=== PATIENT | male | born 1940 | race Caucasian/White ===

== ENCOUNTER 2016-12-13 20:14 | Inpatient (IN) | payer MEDICARE ==
[~2016-12-13] VITALS: Ht 180.3 cm; Wt 99.8 kg
[2016-12-13] MEDS ORDERED: HYDROCODON-ACE1 EAC7 PO (21:48)
[2016-12-13] MEDS ORDERED: ZYPREXA5 MG PO (21:49)
[2016-12-13] MEDS ORDERED: CELEXA20 MG PO (21:50)
[2016-12-13] MEDS ORDERED: PLAVIX75 MG PO (21:50)
[2016-12-13] MEDS ORDERED: PROTONIX40 MG PO (21:51)
[2016-12-13] MEDS ORDERED: LIPITOR80 MG PO (21:52)
[2016-12-13] MEDS ORDERED: GLUCOPHAGE500 MG PO (21:52)
[2016-12-13] MEDS ORDERED: ZIAC 5-6.25 MG1 TAB PO (21:53)
[2016-12-13] MEDS ORDERED: KENALOG 0.1 % 115 GM TOPICAL (21:54)
[2016-12-13] MEDS ORDERED: WELLBUTRIN XL150 M1 PO (21:54)
[2016-12-13] MEDS ORDERED: TAMOXIFEN CITRA20 MG PO (21:55)
--- NOTE | 2016-12-13 23:10 | NUR ---
Recieved patient via EMS at 2100, accompanied by family, consents signed, code status full code per family, patient alert and oriented X 3, no acute distress noted, patient has left side weakness from stroke 3 months ago, assist x 2 for transfer, vegitarian diet, current on pneumonia and flu shots.
[2016-12-14 00:28] VITALS: BP 109/52; BMI 30.7
[2016-12-14 06:08] LABS: BASOPHILS 0.4 % (0-2); EOSINOPHILS 4.8 % (0-7); HEMATOCRIT 34.9 % (42.0-54.0); HEMOGLOBIN 11.3 g/dL (13.5-17.5); IMMATURE GRANULOCYTES 0.2 % (0-5); LYMPHOCYTES 34.7 % (15-50); MCH 32.1 pg (26.0-34.0); MCHC 32.4 g/dL (31.0-37.0); MCV 99.1 fL (80.0-100.0); MEAN PLATELET VOLUME 10.6 fL (7.4-10.4); MONOCYTES 9.5 % (2-11); NEUTROPHILS 50.4 % (40-80); PLATELET COUNT 102 10x3/uL (130-400); RBC 3.52 10x6/uL (4.20-6.10); RDW 13.6 % (11.5-14.5); WBC 4.6 10x3/uL (4.8-10.8)
[2016-12-14 06:20] LABS: HEMOGLOBIN A1C 5.8 % (4.8-6.0)
[2016-12-14 06:50] LABS: ALBUMIN 3.1 g/dL (3.4-5.0); ANION GAP 13.5 mmol/L (8-16); BILIRUBIN - TOTAL 0.71 mg/dL (0.2-1.3); CALCIUM 8.8 mg/dL (8.5-10.1); CARBON DIOXIDE 26.7 mmol/L (21.0-32.0); CHOL - HDL RATIO 4.2 ratio (2.3-4.9); CREATININE - SERUM 1.3 mg/dL (0.6-1.3); LDL-HDL RATIO 2.4 ratio (1.5-3.5); POTASSIUM - SERUM 4.2 mmol/L (3.5-5.1); PROTEIN - SERUM 6.4 g/dL (6.4-8.2); THYROID STIMULATING HORMONE 3.72 uIU/mL (0.36-3.74)
[2016-12-14 08:00] VITALS: BP 105/49
--- NOTE | 2016-12-14 10:30 | NUR ---
B) PATIENT IS DELUSIONAL. HE SAYS HE FELL OUT OF THE BED AND PED ON THE FLOOR. PATIENT DID NOT FALL OUT OF THE BED BECUASE HE IS A BIG MAN AND NEEDS MAX ASSIST TO GET UP OUT OF BED. HE IS BELIGERANT AND WANTS TO ARGUE. HE YELLED WHEN STAFF ROLLED HIM IN HIS BED AND TRIED TO CHANGE HIM AND GET HIM UP. HE IS IRRTABLE AND DOES NOT COMPREHEND WHY HE IS HERE. I) PROVIDE PRESCRIBED MEDS, REDIRECT NEEDED. R) PATIENT IS COMPLIANT WITH MEDS. P) CONTINUE PLAN OF CARE.
[2016-12-14 10:42] VITALS: Ht 180.3 cm; Wt 99.8 kg
[2016-12-14 19:30] VITALS: BP 121/78
--- NOTE | 2016-12-14 22:21 | PSY ---
PATIENT NAME:ANGE PAN MEDICAL RECORD: [id number] : 38 LOCATION:[facility] ADMISSION DATE: 12/13/16 ACCOUNT: [id number] PSYCHIATRIC EVALUATION DATE OF EVALUATION: 12/14/16 IDENTIFYING DATA: A 76-year-old white male who was admitted because of worsening, agitation, confusion and psychosis. HISTORY OF PRESENT ILLNESS: This patient suffered a cerebrovascular accident about 3 months ago. He has residual left hemiparesis. He has been cared for at home by his primarily. However, his mental status has severely deteriorated over the last several months. He is now prone to outbursts of extreme agitation and yelling. He has exhibited prominent delusional ideation primarily of a paranoid nature. He has experienced visual hallucinations as well. This is usually in the forms of people hindering his presence. The patient had been followed by his outpatient physician, Dr. Quinn, and had been treated with increasing amounts of both mood stabilizing and antipsychotic medications. At the time of admission, the patient had been taking Zyprexa 5 mg twice a day in addition to Celexa and Wellbutrin. Despite these measures, the patient has continued to deteriorate. The patient was assessed in the Emergency Department and subsequently transferred here. Since admission, the patient has continued to show significant emotional lability. He is anxious, restless. He slept very poorly last night and reported visual hallucinations to staff. Because of acute psychosis and worsening of overall cognitive status, the patient is now admitted. PAST MEDICAL HISTORY: Significant of course for recent CVA. The patient also has a history of hypertension, type 2 diabetes, gastroesophageal reflux disease and hyperlipidemia. FAMILY HISTORY: Essentially noncontributory. SOCIAL HISTORY: The patient has 2 children. 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 He is . He denies substance abuse issues. ALLERGIES: None listed. MENTAL STATUS: On interview, the patient is seated in a wheelchair. He is anxious, but fairly pleasant on interview nonetheless. Affect is very shallow. Speech is repetitive and, at times, tangential. Content of thought is positive for both paranoid delusional ideation and visual hallucinations as described above. On sensorium testing, the patient is oriented to person and the fact that he is hospitalized. He is not oriented correctly as to time nor the reason for being in the hospital. Intermediate and short-term recall as well as concentration show very significant deficits. 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 AXIS II: No diagnosis. AXIS III: History of recent cerebrovascular accident, hypertension, type 2 diabetes, gastroesophageal reflux disease and hyperlipidemia. AXIS IV: Moderate. AXIS V: 36. PLAN: 1. The patient is admitted for further medication adjustment as well as medical workup. 2. Daily supportive therapy. 3. We will coordinate with family regarding aftercare at the time of discharge. TRANSINT:[id number] Voice Confirmation ID: [id number] DOCUMENT ID: [id number] DIANE OTTO III, MD at 2221 CC: [id number] DICTATION DATE: 12/14/[address] REFEREE: 12/14/16 1323 ADM IN [place] [id number] [place] [id number]
[2016-12-15 06:14] LABS: RAPID PLASMA REAGIN Non Reactive (Non Reactive)
[2016-12-15 07:22] LABS: FOLATE (FOLIC ACID) - SERUM 12.9 ng/mL (>3.0)
[2016-12-15 09:59] VITALS: BP 137/78
--- NOTE | 2016-12-15 13:00 | NUR ---
ALERT AND ORIENTED TO NAME AND PLACE. CARRIES ON APPROPRIATE CONVERSATION AT TIMES, THEN OTHER TIMES PATIENT IS DEMANDING AND YELLING OUT TO NURSE. SAFETY MAINTAINED. CONTINUE PLAN OF CARE.
[2016-12-15 19:30] VITALS: BP 105/51
[2016-12-16 00:09] LABS: APPEARANCE CLEAR (CLEAR); BILIRUBIN NEGATIVE (NEGATIVE); COLOR YELLOW (YELLOW); GLUCOSE NEGATIVE (NEGATIVE); KETONE NEGATIVE (NEGATIVE); LEUKOCYTE ESTERASE NEGATIVE (NEGATIVE); NITRITE NEGATIVE (NEGATIVE); PROTEIN NEGATIVE (NEGATIVE); SPECIFIC GRAVITY 1.015 (1.005-1.020); UROBILINOGEN NORMAL (NORMAL)
--- NOTE | 2016-12-16 03:00 | NUR ---
CALM AND COOPERATIVE TONIGHT. SEE ASSESSMENT FLOW SHEET FOR DETAILS. HAD LESS HALLUCINATIONS. TONIGHT. WILL CONTINUE PLAN OF CARE.
--- NOTE | 2016-12-16 06:48 | PN ---
PATIENT:ANGE PAN MEDICAL RECORD: [id number] LOCATION:[facility] ADMISSION DATE: 12/13/16 PROGRESS NOTE DATE OF SERVICE: 12/15/2016 SUBJECTIVE: No new complaint is noted. OBJECTIVE: Staff noted that the patient continues to show evidence of psychosis. He exhibited visual hallucinations throughout the night last night. During the daytime, he shows peculiar affect. From time to time, he exhibits repetitive speech. At times, he sings the names of staff members. He requires a great deal of redirection from staff. On exam, mood is elevated. Affect is expansive. Speech is rambling and tangential. Content of thought is positive for recent visual hallucinations. Sensorium shows no change. ASSESSMENT: No change in diagnosis. PLAN: 1. Continue close monitoring and medication adjustment as appropriate. 2. Continue supportive therapy. TRANSINT:[id number] Voice Confirmation ID: [id number] DOCUMENT ID: [id number] DIANE OTTO III, MD at 0648 CC: [id number] DICTATION DATE: 12/15/16 1501 ROBOT PROGRAMMER: 12/15/16 2114 ADM IN [facility] [address] [place] [address]
[2016-12-16 07:00] VITALS: BP 122/64
--- NOTE | 2016-12-16 17:07 | NUR ---
Patient in room, lying in bed. Patient assisted with hygiene, unable to transfer due to left sided weakness. He was oriented to self, and place. He said the year was 1957. Patient was reoriented. Pleasant, calm and compliant with medication. He claims a 2/10 on the pain scale but cries out when left arm is moved. Patient can move his fingers but unable to lift arm. He denies visual hallucinations at this time. Continue to monitor, continue plan of care
[2016-12-16 19:30] VITALS: BP 115/62
--- NOTE | 2016-12-16 21:19 | NUR ---
RECEIVED IN DAYROOM. LAYING IN RECLINING CHAIR WITH EYES OPEN. VERY CONFUSED. NO SIGNS OF HALLUCINATIONS. CALM AND COOPERATIVE WITH CARE AND ASSESSMENTS. REDIRECT AND REORIENT NEEDED. ENCOURAGE TO EXPRESS NEEDS. REMAINS IN RECLINER. SOCIALIZING AT TIMES. CONTINUE PLAN OF CARE
[2016-12-17 07:00] VITALS: BP 133/71
[2016-12-17 08:09] LABS: VITAMIN D 25 HYDROXY 18.4 ng/mL (30.0-100.0)
--- NOTE | 2016-12-17 09:09 | PN ---
PATIENT:ANGE PAN MEDICAL RECORD: [id number] LOCATION:[facility] ADMISSION DATE: 12/13/16 PROGRESS NOTE DATE OF SERVICE: 12/16/2016 SUBJECTIVE: No new complaint. OBJECTIVE: The patient continues to show disjointed speech. Affect remains brittle. Staff reports continued episodic hallucinations. On exam, mood is somewhat irritable. Affect is shallow and brittle. Speech is tangential. Content of thought as noted above. Sensorium unchanged. ASSESSMENT: No change in diagnosis. PLAN: 1. Maintain current medication. 2. Continue supportive therapy. TRANSINT:[id number] Voice Confirmation ID: [id number] DOCUMENT ID: [id number] DIANE OTTO III, MD at 0909 CC: [id number] DICTATION DATE: 12/16/162015 HOT WOUND SPRING PRODUCTION SUPERVISOR: 12/16/162036 ADM IN [facility] [address] [place] [id number]
--- NOTE | 2016-12-17 13:38 | NUR ---
B) Received this am alert and oriented to name and some what to place. Pleasant and cooperative with assessment. I.) Administer medications and monitor compliance. Monitor for any hallucinations and increased confusion. Encourage group participation. Monitor safety. R.) Compliant with medication, no evidence of reorientation to place or situation, patient thinks he is getting rehab and " my is up front to pick me up." Preoccupied with thoughts that is is here, confused about situation. Active in group activities. Safety maintained. P.) Continue plan of care.
--- NOTE | 2016-12-17 19:33 | NUR ---
RECEIVED IN HALLWAY. SITTING IN RECLINER OUTSIDE OF NURSES STATION. NO SIGNS HALLUCIANATIONS. CONFUSED. ENCOURAGE TO EXPRESS NEEDS. REDIRECT AND REORIENT NEEDED. CONTINUES TO SIT IN RECLINER. CONTINUE PLAN OF CARE
[2016-12-17 20:02] VITALS: BP 135/67
[2016-12-18 07:00] VITALS: BP 148/54
--- NOTE | 2016-12-18 09:45 | NUR ---
Received this oriented to name, reorients to place and time briefly. Cooperative with am assessment. I.) REDIRECT AND REORIENT NEED. MONITOR FOR ANY HALLUCINATIONS OR INCREASED CONFUSION. R.) Compliant with medications, social during breakfast and consumed 90 percent of meal. Cooperative with testing per Dr. Menjivar. No hallucinations noted. Safety maintained. P.) Continue plan of care.
--- NOTE | 2016-12-18 11:01 | PN ---
PATIENT:ANGE PAN MEDICAL RECORD: [id number] LOCATION:[facility] ADMISSION DATE: 12/13/16 PROGRESS NOTE DATE OF SERVICE: 12/17/2016 SUBJECTIVE: No new complaint. OBJECTIVE: The patient continues to be extremely confused. He is disoriented as to time. He realizes he is in a hospital, but he is not sure which one. He has difficulty following the instructions from time to time. Yesterday, he seemed to have a considerable difficulty swallowing although today, he did eat breakfast fairly well. On exam, mood is for the most part euthymic. Affect is shallow. Speech is normal rate and volume, but flow of thought is very tangential. Content of thought seems to focus primarily on somatic concerns. Today, sensorium is not changed. ASSESSMENT: No change in diagnosis. PLAN: 1. Maintain current treatment plan. 2. Continue supportive therapy. TRANSINT:[id number] Voice Confirmation ID: [id number] DOCUMENT ID: [id number] DIANE OTTO III, MD at 1101 CC: [id number] DICTATION DATE: 12/17/16 1029 NEUROLOGY DIRECTOR: 12/17/16 1542 ADM IN [facility] [address] [place] [address]
--- NOTE | 2016-12-18 13:55 | NUR ---
Patient sitting quietly in sharita chair, tech reports that patient bite his tongue, no bledding noted per nurse, patient responds slowly to instruction, moans and is snoring. Vital signs obtained bp 142/56, hr. 64. resp 18 and temp 98.1 ax. Responds to verbal instructions, and withdrew his hand resisting viatl signs and pulse ox check but then released when instructed. pulse 0x 96%. Continue to monitor.
--- NOTE | 2016-12-18 14:30 | NUR ---
continued to monitor patient and noted gurling and difficulty coughing up secretions. Difficult to responds only moans. Transported patient to his room and vital signs obtained. oxygen saturation fluctuating from 84- 95% when every he takes a deep breath, upper lung sykes congested, bp 155/69, hr 60, resp 14-22. Patient placed on oxygen with sats between 88-95%, suction also set up. [employer] informs nurse that during lunch patient took one bite of his cheese sandwich and stopped eating. Contacted informed of patient condition and assessment, orders received. Contacted Respiratory, patient suctioned with mininmal suction return, no gagging noted. ABG obtained at bedside and blood glucose level 36. Patient given sugar under tongue as insta glucouse was obtained and iv sited, attempt times one per this nurse with 22 g unsuccessful, contacted IV nurse Lori 20g angiocath to right arm times one stick, as dextrose obtained patient given instaglucose, FSBS checked during this administration, level up to 41 1 amp of d50 iv given per MYRNA Sandoval patient starting to arouse and eyes open, responding and attempting to talk FSBS as follow 1508= 41, 1514= 306, 1540= 127. Patient stablized, talking with staff and even attempt to joke with gestures and yelling out. CXR was obtained. Patient is alert and oriented to name and place. One on one monitoring in place. oxygen is at 4lpm sating 95-96percent, decreased to 2lpm and remains at sat of 94-96%, intermittent coughing, of clear white sputum. Positioned up in bed, and patient was stablized at 1530.
--- NOTE | 2016-12-18 15:30 | NUR ---
Patient sposue and son here to visit him, updated them on patient hypoglycemic episode and treatment. per spouse " he sometimes get a grayish color at home and has trouble swallowing.", she states she is not sure if his blood sugar is down at those times or not but notes that patient was taken off of his Metformin. Patient able to carry on appropriate conversation with family during visitation with no complications assessed. Spouse verbalized understanding of information regarding this hypoglycemic episode.
--- NOTE | 2016-12-18 17:02 | NUR ---
Patient has good visit with his family, remains in his room and monitored, FSBS now 82, patient refused meal, given orange juice and cassi craker. He did have swallow eval eariler. Lungs are clearer with no gurling assesed.
--- NOTE | 2016-12-18 18:00 | NUR ---
Remains in room, alert and oriented to self, he is now yelling out out his and others name. Vital signs remain stable. sat 95%, refused supper. Cleansed up of incontinence of stool. No distress assessed.
[2016-12-18 19:03] LABS: BASOPHILS 0.1 % (0-2); EOSINOPHILS 0.1 % (0-7); HEMATOCRIT 36.6 % (42.0-54.0); HEMOGLOBIN 12.2 g/dL (13.5-17.5); IMMATURE GRANULOCYTES 0.1 % (0-5); LYMPHOCYTES 13.8 % (15-50); MCH 32.6 pg (26.0-34.0); MCHC 33.3 g/dL (31.0-37.0); MCV 97.9 fL (80.0-100.0); MEAN PLATELET VOLUME 10.7 fL (7.4-10.4); MONOCYTES 7.5 % (2-11); NEUTROPHILS 78.4 % (40-80); RBC 3.74 10x6/uL (4.20-6.10); RDW 13.1 % (11.5-14.5); WBC 8.1 10x3/uL (4.8-10.8)
[2016-12-18 19:04] LABS: PLATELET COUNT 150 10x3/uL (130-400)
[2016-12-18 19:19] LABS: ALBUMIN 3.4 g/dL (3.4-5.0); ANION GAP 10.1 mmol/L (8-16); BILIRUBIN - TOTAL 0.84 mg/dL (0.2-1.3); CALCIUM 8.7 mg/dL (8.5-10.1); CARBON DIOXIDE 30.5 mmol/L (21.0-32.0); CREATININE - SERUM 1.4 mg/dL (0.6-1.3); POTASSIUM - SERUM 3.6 mmol/L (3.5-5.1); PROTEIN - SERUM 7.1 g/dL (6.4-8.2)
[2016-12-18 19:30] VITALS: BP 119/45
--- NOTE | 2016-12-18 19:42 | NUR ---
RECEIVED IN BEDROOM. LAYING WITH EYES CLOSED. CALM AND COOPERATIVE WITH CARE. RESPONDS TO QUESTIONS. CRITICAL LAB CALLED. BLOOD SUGAR OF 38. DR HARINDER SOSA. NEW ORDERS TO DISCONTINUE BID AMARYL 2MG, GIVE FOOD AND MONITOR FSBS. REMAINS CALM AND COOPERATIVE IN BED. NO SIGNS OF DISTRESS. CONTINUE PLAN OF CARE
--- NOTE | 2016-12-18 21:55 | NUR ---
PT IS BEING DISCHARGED TO [facility] 2 ROOM 2[address]OD[address]AR[address] DR. PIZANO TO FOLLOW HIS CARE. SPOUSE VICTOR HUGO PAN NOTIFIED OF DISCHARGE TO [facility] FLOOR AND ROOM NUMBER. PAPERWORK FAXED AND COPIES GIVEN TO [facility] NURSE.
[2016-12-19] MEDS ORDERED: PROTONIX40 MG PO (03:52)
[2016-12-19] MEDS ORDERED: ZIAC 5-6.25 MG1 TAB PO (03:53)
[2016-12-19] MEDS ORDERED: PERPHENAZINE2 MG PO (03:55)
== END 2016-12-18 22:03 | disposition short-term general hospital (02) | DRG 57 ==
LOC: D.PSYCH 20:14
PROVIDERS: Family Medicine; ADMIT Psychiatry & Neurology Psychiatry
DX: I69.919 Unspecified symptoms and signs involving cognitive functions following unspecified cerebrovascular disease (principal); F01.50 Vascular dementia, unspecified severity, without behavioral disturbance, psychotic disturbance, mood disturbance, and anxiety; F32.9 Major depressive disorder, single episode, unspecified; I10 Essential (primary) hypertension; E11.65 Type 2 diabetes mellitus with hyperglycemia; Z79.4 Long term (current) use of insulin; K21.9 Gastro-esophageal reflux disease without esophagitis; E78.5 Hyperlipidemia, unspecified; Z85.3 Personal history of malignant neoplasm of breast

== ENCOUNTER 2016-12-18 22:00 | Inpatient (IN) | payer MEDICARE ==
[~2016-12-18] VITALS: Ht 180.3 cm; Wt 100.7 kg
[~2016-12-18 22:00] MED LIST: CELEXA20 MG PO; GLUCOPHAGE500 MG PO; HYDROCODON-ACE1 EAC7 PO; KENALOG 0.1 % 115 GM TOPICAL; LIPITOR80 MG PO; PLAVIX75 MG PO; PROTONIX40 MG PO; TAMOXIFEN CITRA20 MG PO; WELLBUTRIN XL150 M1 PO; ZIAC 5-6.25 MG1 TAB PO; ZYPREXA5 MG PO
--- NOTE | 2016-12-18 22:15 | NUR ---
RECEIVED PT FROM [facility] VIA BED SKIN W/D COLOR PALE SALINE LOCK INTACT TO RIGHT WRIST NO REDNESS OR EDEMA AT SITE DRSG C/D/I WILL CONTINUE TO MONITOR
[2016-12-18 23:52] VITALS: BP 115/54
[2016-12-19 00:51] VITALS: BP 100/46; BMI 31.0
--- NOTE | 2016-12-19 01:38 | NUR ---
FSBS 48 STAT GLUCOSE ORDERED 1/2 AMP D50 GIVEN SIVP
--- NOTE | 2016-12-19 02:38 | NUR ---
LAB CALLED CRITICAL GLUCOSE 46 1/2 AMP DEXTROSE 50% GIVEN SIVP GLUCAGON 1MG GIVEN IM LT DORSOGLUTEAL WILL RECHECK IN 30 MIN FED PT ANDREIA CRACKERS WITH PEANUT BUTTER
--- NOTE | 2016-12-19 03:29 | NUR ---
FSBS 129 CONFUSION APPEARS TO BE CLEARING UP PT KNOWS HE IS IN [place]
[2016-12-19] MEDS ORDERED: PROTONIX40 MG PO (03:52)
[2016-12-19 03:53] VITALS: BP 121/43
[2016-12-19] MEDS ORDERED: ZIAC 5-6.25 MG1 TAB PO (03:53)
[2016-12-19] MEDS ORDERED: PERPHENAZINE2 MG PO (03:55)
--- NOTE | 2016-12-19 05:04 | NUR ---
FSBS 58 PT REFUSING ORAL INTAKE DEXTROSE 50% GIVEN SIVP TO LT HAND
[2016-12-19 08:41] VITALS: BP 120/54
[2016-12-19 08:56] LABS: BASOPHILS 0.1 % (0-2); EOSINOPHILS 0.4 % (0-7); HEMATOCRIT 32.6 % (42.0-54.0); HEMOGLOBIN 10.9 g/dL (13.5-17.5); IMMATURE GRANULOCYTES 0.2 % (0-5); LYMPHOCYTES 20.8 % (15-50); MCH 32.5 pg (26.0-34.0); MCHC 33.4 g/dL (31.0-37.0); MCV 97.3 fL (80.0-100.0); MEAN PLATELET VOLUME 10.9 fL (7.4-10.4); MONOCYTES 8.6 % (2-11); NEUTROPHILS 69.9 % (40-80); PLATELET COUNT 130 10x3/uL (130-400); RBC 3.35 10x6/uL (4.20-6.10); RDW 13.1 % (11.5-14.5); WBC 9.8 10x3/uL (4.8-10.8)
[2016-12-19 09:09] LABS: BILIRUBIN - TOTAL 0.85 mg/dL (0.2-1.3); CALCIUM 8.1 mg/dL (8.5-10.1); CARBON DIOXIDE 27.2 mmol/L (21.0-32.0); CREATININE - SERUM 1.3 mg/dL (0.6-1.3); PROTEIN - SERUM 6.5 g/dL (6.4-8.2)
[2016-12-19 09:14] LABS: ANION GAP 10.8 mmol/L (8-16)
--- NOTE | 2016-12-19 10:19 | NUR ---
IV PATENT. FAMILY AT BS. CALL LIGHT IN REACH. WILL CONT TO MONITOR BS.
--- NOTE | 2016-12-19 10:37 | DS ---
PATIENT:ANGE PAN :38 MEDICAL RECORD: [id number] DISCHARGE SUMMARY ADMISSION DATE: 12/18/16 DISCHARGE DATE: DATE OF ADMISSION: 12/13/2016. DATE OF DISCHARGE: 12/18/2016. HISTORY OF PRESENT ILLNESS: A 76-year-old white male with past history of CVA, admitted because of worsening agitation, confusion and psychosis. He had been cared for at home by his , but his mental status had severely deteriorated over the last several months. He was exhibiting periods of agitation and yelling. He also exhibited delusional ideation and visual hallucination because of worsening psychosis, the patient was admitted. For further details, please see previously dictated history. ____ COURSE IN THE HOSPITAL: The patient was assessed by primary care. He has a history of CVA plus hypertension, type 2 diabetes, gastroesophageal reflux disease and hyperlipidemia. Following admission, the patient was followed with her medical concerns by Dr. Cochran. From a psychiatric standpoint, he was started on Aricept 10 mg daily as well as Celexa 20 mg daily for depressive symptoms, was also maintained on perphenazine 2 mg t.i.d. Nonpsychiatric medications did include Plavix and Amaryl. The patient showed some improvement in terms of his agitation; however, the date of discharge, the patient showed considerable difficulties in terms of maintaining his blood sugar. Because of deterioration in terms of blood sugars status, it was elected to go ahead and transfer the patient to the medical floor. 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 AXIS II: No diagnosis. AXIS III: Diabetes -- currently uncontrolled, hypertension, recent CVA, hyperlipidemia. AXIS IV: Severe. AXIS V: 30. PLAN: The patient is transferred to the medical floor. TRANSINT:[id number] Voice Confirmation ID: [id number] DOCUMENT ID: [id number] DIANE OTTO III, MD at 1037 CC: [id number] DICTATION DATE: 12/18/162141 REFRIGERATOR GLAZIER: 12/19/161 ADM IN [place] [id number] [place] [address]
--- NOTE | 2016-12-19 10:37 | PN ---
PATIENT:ANGE PAN MEDICAL RECORD: [id number] LOCATION:D[facility].211 ADMISSION DATE: 12/18/16 PROGRESS NOTE DATE OF SERVICE: 12/18/2016 SUBJECTIVE: No new complaint. OBJECTIVE: The patient continues to show considerable confusion. He was tested by Dr. Menjivar. He scored 9/30 on the [facility] Mental Status exam indicating significant dementia of the Alzheimer's type. On exam, mood is for the most part euthymic. Affect is shallow. Speech is tangential. Content of thought is negative for overt psychosis. 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 Sensorium testing is unchanged. ASSESSMENT: No change in diagnosis. PLAN: 1. We will add Aricept 10 mg h.s. 2. Continue other current medications including perphenazine 2 mg 3 times a day. 3. Continue supportive therapy. TRANSINT:[id number] Voice Confirmation ID: [id number] DOCUMENT ID: [id number] DIANE OTTO III, MD at 1037 CC: [id number] DICTATION DATE: 12/18/16 1221 PUDDLER PILE DRIVING: 12/18/16 2215 ADM IN [place] [id number] [place] [id number]
[2016-12-19 12:46] VITALS: BP 130/54
[2016-12-19 13:48] VITALS: Ht 180.3 cm; Wt 100.7 kg
--- NOTE | 2016-12-19 16:49 | NUR ---
SCD'S ON LUPE LE
[2016-12-19 16:53] VITALS: BP 173/75
--- NOTE | 2016-12-19 19:31 | NUR ---
RESUMED CARE OF PT, LYING IN BED WITH EYES CLOSED RESPIRATIONS EVEN AND UNLABORED ON ROOM AIR. LEFT FOREARM INFUSING D10NS @ 100. CALL LIGHT IN REACH. NO NEEDS NOTED AT THIS TIME. WILL CONTINUE TO MONITOR. SEE NURSE ASSESSMENT.
[2016-12-19 20:00] VITALS: BP 132/52
--- NOTE | 2016-12-19 23:18 | NUR ---
FSBS CHECKED 3 TIMES 61, 51, AND 48 RESPECTIVELY. 1/2 AMP OF D50 GIVEN EACH TIME. WILL CONTINUE TO MONITOR.
[2016-12-20] VITALS: BP 148/83
--- NOTE | 2016-12-20 03:41 | NUR ---
ADVERTISING DIRECTOR AT BEDSIDE TO OBTAIN VITALS, CALL LIGHT IN REACH. WILL CONTINUE WITH PLAN OF CARE. FSBS RECHECK AFTER 1 AMP OF D50 GIVEN FOR BS OF 43, IS CURRENTLY 85.
[2016-12-20 04:00] VITALS: BP 164/83
--- NOTE | 2016-12-20 05:32 | NUR ---
FSBS 45, 1/2 AMP D50 IVP.
[2016-12-20 06:04] LABS: BASOPHILS 0.2 % (0-2); EOSINOPHILS 3.3 % (0-7); HEMATOCRIT 33.6 % (42.0-54.0); HEMOGLOBIN 11.4 g/dL (13.5-17.5); IMMATURE GRANULOCYTES 0.2 % (0-5); LYMPHOCYTES 24.3 % (15-50); MCH 32.4 pg (26.0-34.0); MCHC 33.9 g/dL (31.0-37.0); MCV 95.5 fL (80.0-100.0); MEAN PLATELET VOLUME 10.6 fL (7.4-10.4); MONOCYTES 10.9 % (2-11); NEUTROPHILS 61.1 % (40-80); PLATELET COUNT 150 10x3/uL (130-400); RBC 3.52 10x6/uL (4.20-6.10); WBC 8.5 10x3/uL (4.8-10.8)
[2016-12-20 06:17] LABS: CARBON DIOXIDE 27.1 mmol/L (21.0-32.0); CREATININE - SERUM 1.3 mg/dL (0.6-1.3); POTASSIUM - SERUM 3.1 mmol/L (3.5-5.1)
--- NOTE | 2016-12-20 06:59 | NUR ---
AM LAB SHOWED GLUCOSE OF 108, RECHECKED FSBS NOW 44, 1/2 D50 GIVEN IVP.
--- NOTE | 2016-12-20 07:29 | NUR ---
ASSESSMENT COMPLETED.O2 AT 2 L/M PER NC. NO TELEMERTY. IV OD D 10 AT 100 CC HR. OLD CVA WITH WEAKNESS AT LEFT SIDE. SCDS ON. BLOOD SUGAR AT 44, 1/2 AMP D50 GIVEN TO PT.
[2016-12-20 07:55] VITALS: BP 161/87
--- NOTE | 2016-12-20 08:17 | NUR ---
WHOLE AMP OF D50 GIVEN @ 0800. DR PIZANO NOTIFIED BUT NO ANSWER. PATIENT RESPONSED VERBALLY BY " I AM CRAZY TO DAY.". AT BEDSIDE. HAD CONVERSATION WITH ABOUT CODE STATUS. SHE STATED SHE WANTS A FULL CODE. WILL CONTINUE TO MONITOR. WILL TRY TO GET PT TO EAT BREAKFAST.
--- NOTE | 2016-12-20 09:00 | NUR ---
PREPED AND READY FOR SEWING MACHINE OPERATOR SEMIAUTOMATIC
--- NOTE | 2016-12-20 09:58 | NUR ---
DR. PIZANO HERE TO SEE PATIENT. BS CHECKED-103. PATIENT MORE ALERT. THIS NURSE HAD SPOKEN TO ROLDAN RAMOS TELEMARKETING AGENT ABOUT GETTING FOODS THAT PATIENT WOULD EAT. D10 GTT INCREASED TO 125CC/HR. ORDERED BY DR. PIZANO. PATIENT IS ORIENTED TO CERTAIN THINGS, IE TESTIMONY OF GOVERNMENT OFFICIAL ON CERTAIN CHANNEL. BUT DOES NOT KNOW HE IS IN HOSPITAL. AT BEDSIDE AND WILL CONTINUE TO MONITOR.
--- NOTE | 2016-12-20 11:30 | NUR ---
PT ALERT. B/S 119. DENIES ANY NEEDS. CALL LIGHT IN REACH WITH SR UP . WILL MONITOR
[2016-12-20 11:35] VITALS: BP 108/69
[2016-12-20 15:22] VITALS: BP 169/73
--- NOTE | 2016-12-20 17:32 | NUR ---
LYING QUIETLY WITH FAMILY AT BEDSIDE.FSBS 233 AFTER EATING. DENIES ANY NEEDS. CALL LIGHT IN REACH AND SR UP
--- NOTE | 2016-12-20 17:51 | NUR ---
CLEANED AND REPOSITIONED. DENIES ANY NEEDS. CALL LIGHT IN REACH WITH SR UP. FAMILY AT BEDSIDE
--- NOTE | 2016-12-20 19:29 | NUR ---
RESUMED CARE OF PT, LYING IN BED RESPIRATIONS EVEN AND UNLABORED ON 2LPM VIA NC. LEFT AC INFUSING D10 @ 125. SCDS ON, CALL LIGHT IN REACH. BOX ALARM ON. NO NEEDS NOTED AT THIS TIME, SEE NURSE ASSESSMENT.
[2016-12-20 20:00] VITALS: BP 117/63
--- NOTE | 2016-12-21 03:00 | NUR ---
MEDICAL PHYSICS PROFESSOR AT BEDSIDE TO OBTAIN VITALS, CALL LIGHT IN REACH. WILL CONTINUE WITH PLAN OF CARE. BED BATH AND LINENS CHANGED.
[2016-12-21 04:00] VITALS: BP 131/59
[2016-12-21 07:01] LABS: ANION GAP 12.5 mmol/L (8-16); CALCIUM 7.9 mg/dL (8.5-10.1); CARBON DIOXIDE 25.2 mmol/L (21.0-32.0); CREATININE - SERUM 1.5 mg/dL (0.6-1.3); MAGNESIUM - SERUM 1.3 mg/dL (1.8-2.4)
[2016-12-21 07:02] LABS: POTASSIUM - SERUM 3.7 mmol/L (3.5-5.1)
--- NOTE | 2016-12-21 07:10 | NUR ---
ASSESSMENT COMPLETED. NO TELEMERTY. O2 AT 2 LM PER NC. IV TO LEFT AC OF D10 AT 50. REPOSITIONED FOR COMFORT
[2016-12-21 07:48] VITALS: BP 125/62
[2016-12-21 11:48] VITALS: BP 138/72
--- NOTE | 2016-12-21 12:13 | NUR ---
TEMP UP. WILL REPORT TO DOCTOR. SR UP WITH CALL LIGHT IN REACH
--- NOTE | 2016-12-21 12:20 | NUR ---
Nutrition follow-up: Diet: Vegetarian regular PO intake has improved to ~25-50% of meals FSBS running > 200 mg/dl now Wt: 221# +BM RDN ordered daily milkshake and Boost with breakfast, dinner RDN following.
[2016-12-21 13:17] LABS: BASOPHILS 0.1 % (0-2); EOSINOPHILS 2.7 % (0-7); HEMATOCRIT 31.9 % (42.0-54.0); HEMOGLOBIN 10.7 g/dL (13.5-17.5); IMMATURE GRANULOCYTES 0.1 % (0-5); LYMPHOCYTES 13.9 % (15-50); MCH 32.1 pg (26.0-34.0); MCHC 33.5 g/dL (31.0-37.0); MCV 95.8 fL (80.0-100.0); MONOCYTES 11.3 % (2-11); NEUTROPHILS 71.9 % (40-80); PLATELET COUNT 149 10x3/uL (130-400); RBC 3.33 10x6/uL (4.20-6.10); RDW 12.9 % (11.5-14.5); WBC 7.4 10x3/uL (4.8-10.8)
--- NOTE | 2016-12-21 13:36 | NUR ---
PT LYING QUIETLY WITH EYES CLOSED. FAMILY AT BEDSIDE. CALL LIGHT IN REACH WITH SR UP. LAB DRAWING BLOOD
--- NOTE | 2016-12-21 14:53 | NUR ---
LEAHY CATH 16FRENCH PLACED WITHOUT DIFFICULTY. 1200 CC URINE RETURNED TO CATH BAG. URINE SENT TO LAB.PT REPOSITIONED AND BED CHANGED
--- NOTE | 2016-12-21 15:10 | NUR ---
ORDERS RECEIVED FOR HOME HEALTH (DISCHARGE PLANNING). ATTEMPTED TO TALK WITH THE PATIENT. HE OPENED EYES BRIEFLY, BUT DID NOT REMAIN OPEN AND THERE WAS NO VERBALIZATION. ATTEMPTED TO REACH HIS , VICTOR HUGO PAN, AT [phone]. THE PHONE RANG AND RANG UNTIL IT STOPPED RINGING. NO VOICE MAIL SET UP APPARENTLY. WILL CONTINUE TO TRY TO REACH A FAMILY MEMBER. PATIENT WAS ADMITTED TO THIS FLOOR FROM THE INPATIENT PSYCH UNIT DOWNSTAIRS. CM WILL CONTNUE TO FOLLOW.
[2016-12-21 15:51] VITALS: BP 131/60
[2016-12-21 16:08] LABS: APPEARANCE CLEAR (CLEAR); COLOR YELLOW (YELLOW)
[2016-12-21 16:09] LABS: BILIRUBIN NEGATIVE (NEGATIVE); GLUCOSE NEGATIVE (NEGATIVE); KETONE NEGATIVE (NEGATIVE); LEUKOCYTE ESTERASE NEGATIVE (NEGATIVE); NITRITE NEGATIVE (NEGATIVE); PROTEIN NEGATIVE (NEGATIVE); UROBILINOGEN NORMAL (NORMAL)
--- NOTE | 2016-12-21 17:19 | NUR ---
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 No 0 * How many steps to enter\exit or inside your home? RAMP 0 * PCP DR. MARY 0 * Pharmacy [facility] [place] [facility], MAIL ORDER 0 * Preadmission Environment Acute Care Facility 0 * Facility Name [facility] 0 * ADLs Partial Dependent 0 * Partial ADLs (Assistance needed) Bathing Dressing Medication Management Toileting Transfers 0 * Equipment Bedside Commode Olivia Lift Wheelchair 0 * Other Equipment [facility] - MEDICAL EQUIPMENT PROVIDER PREFERENCE 0 * List name and contact numbers for known caregivers / representatives who currently or will assist patient after discharge: KAYA PAN, SON, VICTOR HUGO PAN, SPOUSE, 0 * Community resources currently utilized None 0 * Please name any agencies selected above. NONE 0 * Additional services required to return to the preadmission environment? Yes * Can the patient safely return to the preadmission environment? Yes 0 * Has this patient been hospitalized within the prior 30 days at any hospital? Yes 0 CM MET WITH PT AND SON, KAYA, IN ROOM TO DISCUSS DISCHARGE PLANNING AND NEEDS WELL DISCHARGE PLANNING HOME HEALTH CONSULT ORDER. PT SLEEPING VERY SOUNDLY, KAYA REQUESTED TO SPEAK IN THE DOBBINS NOT TO AWAKEN PT AND LET HIM REST. KAYA REPORTS PT LIVING AT HOME DEPENDENTLY ON SPOUSE AND SON, PT LIVES WITH SPOUSE. PT HAS BEDSIDE COMMODE THAT HE DOES NOT USE, WHEELCHAIR, TRANSFER CHAIR AND OLIVIA LIFT. PT'S MEDICAL EQUIPMENT PROVIDER IS [facility]. PT HAS NOT OTHER SERVICES ASSISTING IN THE HOME. CM DISCUSSED AVAILABILITY OF HOME HEALTH, REHAB SERVICES AND MEDICAL EQUIPMENT. PT HAD HOME HEALTH WITH [facility] IN THE PAST AFTER STROKE, FAMILY WOULD WELCOME ASSISTANCE IN MONITORING DIABETES AND WOULD LIKE AN AIDE TO ASSIST WITH BATHING PT IF COVERED BY INSURANCE. THEY WOULD LIKE [facility] AGAIN. ROSY SIGNED, SON REPORTS HE WILL JACKSPOOLER UP FOR DISCHARGE HOME. IMPORTANT MESSAGE FROM [employer] PROVIDED AND EXPLAINED. CM CALLED ENRIQUETA OF [facility], , PROVIDED REFERRAL INFORMATION. CM FAXED REFERRAL TO [facility], . FOR DISCHARGE HOME WITH HOME HEALTH, FAX DISCHARGE INFORMATION TO [facility], , NOTIFY [facility] NURSE AT [phone]. Lot Porter: Moshe Sanders
--- NOTE | 2016-12-21 17:48 | NUR ---
PT LYING QUIETLY. TALKING WHEN QUESTIONS ASKED. TELEMERTY SHOWS SR. NO NEEDS VOICED
--- NOTE | 2016-12-21 19:50 | NUR ---
ADMISSIOIN ASSESSMENT COMPLETED. PT DENIED ANY DISCOMFORT. BED ALARM ON.
[2016-12-21 20:00] VITALS: BP 136/50
--- NOTE | 2016-12-21 22:43 | NUR ---
PM MMEDS GIVEN. 2100 FSBS 176. NO COVERAGE GIVEN. PT REPOSITIONED IN BED FOR COMFORT. WILL CONTINUE TO MONITOR. BED ALARM ON, SR UP X2 AND CALL LIGHT WITHIN REACH.
[2016-12-22] VITALS: BP 126/69
--- NOTE | 2016-12-22 01:27 | NUR ---
TEMP 102 AX. TYLENOL 650MG PO GIVEN. PT PLACED IN HIGH FOWLERS FOR MED ADMINISTARTION. PT SWALLOWED MEDS WITHOUT DIFFICULTY. WILL CONTINUE TO MONITOR.
--- NOTE | 2016-12-22 02:16 | NUR ---
PT RESTING WITH EYES CLOSED. RESP EVEN AND REGULAR. SR UP X2, CALL LIGHT WITHIN REACH.
--- NOTE | 2016-12-22 02:59 | NUR ---
BEDBATH DONE, BED LINENS CAHNGED. 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 HEART SHAPED MEPILEX APPLIED. PT REPOSITIONED IN BED FOR COMFORT. SCD'S OFF AT THIS TIME. WILL CONTINUE TO MONITOR. SR UP X2, CALL LIGHT WITHIN REACH. TEMP DOWN TO 98.3.
[2016-12-22 04:00] VITALS: BP 107/54
--- NOTE | 2016-12-22 04:20 | NUR ---
LEAHY CARE DONE. PT WITH LOOSE COUGH. WILL CONTINUE TO MONITOR. SR UP X2, CALL LIGHT WITHIN REACH.
[2016-12-22 05:58] LABS: ANION GAP 10.9 mmol/L (8-16); CALCIUM 8.6 mg/dL (8.5-10.1); CARBON DIOXIDE 27.7 mmol/L (21.0-32.0); CREATININE - SERUM 1.4 mg/dL (0.6-1.3); POTASSIUM - SERUM 3.6 mmol/L (3.5-5.1)
[2016-12-22 06:00] LABS: MAGNESIUM - SERUM 1.8 mg/dL (1.8-2.4)
--- NOTE | 2016-12-22 06:35 | NUR ---
VSS THROUGHOUT NIGHT. PT DENIED ANY DISCOMFORT. AFEBRILE THIS AM. AM FSBS 124. NEEDS MET; WILL CONTINUE TO MONITOR.
--- NOTE | 2016-12-22 07:55 | NUR ---
ASSESSMENT DONE. DENIES NEEDS.
[2016-12-22 08:00] VITALS: BP 99/50
--- NOTE | 2016-12-22 09:15 | NUR ---
RESTS WITH EYES CLOSED. RESP UL ON . AT BS. CALL LIGHT IN REACH. WILL CONT. PLAN OF CARE.
[2016-12-22 12:00] VITALS: BP 124/52
[2016-12-22 16:00] VITALS: BP 126/60
--- NOTE | 2016-12-22 17:50 | NUR ---
WITHOUT CHANGES OR DISTRESS NOTED. FAMILY AT SIDE.
--- NOTE | 2016-12-22 19:42 | NUR ---
INITIAL ROUNDS COMPLETED. PT RESTING WITH EYES CLOSED. RESP EVEN AND REGULAR. SR UP X2,CALL LIGHT WITHIN REACH.
[2016-12-22 20:00] VITALS: BP 97/46
--- NOTE | 2016-12-22 22:23 | NUR ---
PM FSBS 103. PT REPOSITIONED IN BED FOR COMFORT AT 2109 HRS. IV TO LAC OCCLUDED. DC'D WITH CATHETER INTACT. ATTEMPTED IV X4 WITHOUT SUCCESS. PT TO CT OF HEAD AT 2204 HRS. BACK AT 5 HRS. WILL CONTINUE TO MONITOR. SR UP X2, CALL LIGHT WITHIN REACH.
--- NOTE | 2016-12-22 22:43 | NUR ---
IV STARTED #22 TO UPPER R ARM BY Clint MCRAE RN. PT TOLERATED WELL. ORAL CARE DONE. PT REFUSES OFFER FOR WATER OR JUICE. REPOSITIONED IN BED FOR COMFORT. WILL CONTINUE TO MONITOR.
--- NOTE | 2016-12-22 23:24 | NUR ---
PT MORE ALERT. CONTINUES TO REFUSE TO OPEN EYES BUT WILL ANSWER YES/NO QUESTIONS. REFUSES OFFER FOR WATER. REFUSED ORAL CARE AT THIS TIME. WILL CONTINUE TO MONITOR.
[2016-12-23] VITALS: BP 120/66
--- NOTE | 2016-12-23 01:09 | NUR ---
PT RESTING WITH EYES CLOSED. RESP EVEN AND REGULAR. SR UP X2, CALL LIGHT WITHIN REACH.
--- NOTE | 2016-12-23 02:24 | NUR ---
PT RESTING WITH EYES CLOSED. RESP EVEN AND REGULAR. SR UP X2, CALL LIGHT WITHIN REACH.
--- NOTE | 2016-12-23 03:37 | NUR ---
BEDBATH DONE; BED LINENS CHANGED. PT YELLED LOUDLY WHILE CHANGING BEDSHEETS. PT DECLINES OFFER FOR WATER. PT REFUSES TO OPEN MOUTH FOR ORAL CARE. ANSWERS YES/NO QUESTIONS. LEAHY CARE DONE. PT REPOSITIONED IN BED FOR COMFORT. WILL CONTINUE TO MONITOR.
--- NOTE | 2016-12-23 03:43 | NUR ---
PT EATING A FEW GRAPES AT THIS TIME. WILL CONTINUE TO MONITOR.
[2016-12-23 04:00] VITALS: BP 145/55
--- NOTE | 2016-12-23 06:16 | NUR ---
AM FSBS 105. PT CONTINUES TO DECLINE OFFER FOR WATER. REPOSITOINED IN BED FOR COMFORT. DURING SHIFT. NEEDS MET; WILL CONTIUE TO MONITOR.
[2016-12-23 06:57] LABS: BASOPHILS 0.4 % (0-2); EOSINOPHILS 0.9 % (0-7); HEMOGLOBIN 11.1 g/dL (13.5-17.5); IMMATURE GRANULOCYTES 0.2 % (0-5); LYMPHOCYTES 27.1 % (15-50); MCH 32.6 pg (26.0-34.0); MCHC 33.6 g/dL (31.0-37.0); MCV 96.8 fL (80.0-100.0); MONOCYTES 14.7 % (2-11); NEUTROPHILS 56.7 % (40-80); PLATELET COUNT 127 10x3/uL (130-400); RBC 3.41 10x6/uL (4.20-6.10); RDW 12.8 % (11.5-14.5); WBC 4.7 10x3/uL (4.8-10.8)
[2016-12-23 07:25] LABS: ALBUMIN 2.9 g/dL (3.4-5.0); ANION GAP 11.7 mmol/L (8-16); BILIRUBIN - TOTAL 0.77 mg/dL (0.2-1.3); CALCIUM 8.7 mg/dL (8.5-10.1); CARBON DIOXIDE 29.1 mmol/L (21.0-32.0); CREATININE - SERUM 1.4 mg/dL (0.6-1.3); MAGNESIUM - SERUM 1.7 mg/dL (1.8-2.4); PHOSPHOROUS 3.5 mg/dL (2.5-4.9); POTASSIUM - SERUM 3.8 mmol/L (3.5-5.1); PROTEIN - SERUM 6.4 g/dL (6.4-8.2)
[2016-12-23 08:00] VITALS: BP 130/63
--- NOTE | 2016-12-23 08:00 | NUR ---
ASSESSMENT DONE. WITHOUT DISTRESS NOTED
--- NOTE | 2016-12-23 09:23 | NUR ---
RESTS IN BED WITH CALL LIGHT IN REACH. AT BS. WILL CONT. PLAN OF CARE.
--- NOTE | 2016-12-23 17:54 | NUR ---
WITHOUT DISTRESS NOTED AT THIS TIME. FAMILY AT SIDE.
--- NOTE | 2016-12-23 19:47 | NUR ---
INIITAL ROUNDS COMPLETED AT 1909 HRS. PT RESTING WTIH EYES CLOSED. RESP EVEN AND REGULAR. ASSESSMENT COMPLETED AT 1909 HRS. IV TO UPPER R ARM WITHNS AT 75CC/HR. IV PATENT. O2 2LNC. LUNGS WITH SCATTERED RHONCHI BILAT. L ARM FLACCID. 2+ VERÓNICA,MA TO L ARM, 1+ EDEMA TO R ARM. SCD'S REMOVED AND SKIN INSPECTED. NO CAHGE NOTED. HEEL PROTECTORS ON BILAT FEET. DRESSING TO BUTTOCKS CLEAN, DRY AND INTACT. PT FOLLOWS COMMANDS. REFUSES TO OPEN EYS. ANSWERS YES/NO QUESTIONS. REFUSES OFFER FOR FLIUDS AND ORAL CARE. WILL CONTINUE TO MONITOR. SR UP X2, CALL LIGHT WITHIN REACH.
[2016-12-23 21:33] VITALS: BP 138/63
--- NOTE | 2016-12-23 22:09 | NUR ---
FSBS 93. PT REPOSITIONED IN BED FOR COMFORT. WILL CONTINUE TO MONITOR.
[2016-12-23 23:00] VITALS: BP 129/78
--- NOTE | 2016-12-23 23:49 | NUR ---
PT RESTING WITH EYES CLOSED. RESP EVEN AND REGULAR. SR UP X2, CALL LIGHT WITHIN REACH.
--- NOTE | 2016-12-24 02:08 | NUR ---
PT RESTING WITH EYES CLOSED. RESP EVEN AND REGULAR. SR UP X2,CALL LIGHT WITHIN REACH.
--- NOTE | 2016-12-24 04:46 | NUR ---
PT YELLING LOUDLY " I DON'T WANT THAT " WHEN ATTEMPTING ORAL CARE. PT UNCOOPERATIVE DURING IV DRAW. WILL CONTINUE TO MONITOR.
[2016-12-24 05:30] LABS: BASOPHILS 0.2 % (0-2); EOSINOPHILS 2.5 % (0-7); HEMATOCRIT 31.8 % (42.0-54.0); HEMOGLOBIN 10.6 g/dL (13.5-17.5); IMMATURE GRANULOCYTES 0.2 % (0-5); LYMPHOCYTES 33.5 % (15-50); MCH 32.5 pg (26.0-34.0); MCHC 33.3 g/dL (31.0-37.0); MCV 97.5 fL (80.0-100.0); MEAN PLATELET VOLUME 10.1 fL (7.4-10.4); MONOCYTES 10.3 % (2-11); NEUTROPHILS 53.3 % (40-80); PLATELET COUNT 118 10x3/uL (130-400); RBC 3.26 10x6/uL (4.20-6.10); RDW 12.7 % (11.5-14.5); WBC 5.3 10x3/uL (4.8-10.8)
--- NOTE | 2016-12-24 06:05 | NUR ---
PT INCONTINENT OF STOOL. INCONTINENT CARE DONE. PT VERY UNCOOPERATIVE DURING ACTIVITY YELLING LOUDLY AND SPITTING. NEW MEPILEX APPLIED TO BUTTOCKS. REPOSITIONED IN BED OFR COMFORT. PT REFUSES ORAL CARE. WILL CONTINUE TO MONITOR.
[2016-12-24 06:11] LABS: ANION GAP 14.2 mmol/L (8-16); CALCIUM 8.5 mg/dL (8.5-10.1); CARBON DIOXIDE 25.8 mmol/L (21.0-32.0); CREATININE - SERUM 1.1 mg/dL (0.6-1.3); MAGNESIUM - SERUM 1.5 mg/dL (1.8-2.4); PHOSPHOROUS 3.1 mg/dL (2.5-4.9)
[2016-12-24 06:37] VITALS: BP 139/76
--- NOTE | 2016-12-24 07:30 | NUR ---
ASSESSMENT COMPLETED. NO TELEMERTY. O2 AT 2 LM PER NC.LUNGS DIMISHED. LEAHY CATH TO BEDSIDE GRAITY BAG. 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 HEEL PROCETORS ON. SR UP TIMES TWO WITH ERIN ALARM ON. CALL LIGHT IN REACH .
[2016-12-24 08:00] VITALS: BP 137/53
[2016-12-24 12:00] VITALS: BP 146/65
--- NOTE | 2016-12-24 12:14 | NUR ---
FAMILY AT BEDSIDE. DR. PIZANO HERE. PT HAS NOT RESPONDED VEREBALLY TODAY. WILL CONTINUE TO MONITOR
--- NOTE | 2016-12-24 13:59 | NUR ---
Nutrition follow-up: Diet: Vegetarian as tolerated PO intake very poor at this time due to lethary Labs reviewed Wt: 221# PO intake poor. Pt will need nutrition support started soon if medically feasible. RDN following.
--- NOTE | 2016-12-24 18:24 | NUR ---
LYING QUIETLY WITH FAMILY AT BEDSIDE. DENIES ANY NEEDS. IV INFUSING WELL
--- NOTE | 2016-12-24 19:00 | NUR ---
INITIAL ROUNDS MADE. PT SITTING UP IN BED RESTING WELL WITH EYES CLOSED, AWAKENED EASILY WHEN NAME CALLED. NO NEEDS OR C/O VOICED AT THIS TIME. CALL LIGHT IN REACH. WILL CONT TO MONITOR.
[2016-12-24 20:00] VITALS: BP 160/84
[2016-12-25] VITALS: BP 156/76
--- NOTE | 2016-12-25 01:04 | NUR ---
WATER MANGLE TENDER AT BEDSIDE FOR VS. NEEDS ADDRESSED AT THIS TIME. CALL LIGHT IN REACH. WILL CONT TO MONITOR.
[2016-12-25 05:51] LABS: BASOPHILS 0.2 % (0-2); EOSINOPHILS 2.6 % (0-7); HEMATOCRIT 30.7 % (42.0-54.0); HEMOGLOBIN 10.3 g/dL (13.5-17.5); LYMPHOCYTES 28.9 % (15-50); MCH 32.3 pg (26.0-34.0); MCHC 33.6 g/dL (31.0-37.0); MCV 96.2 fL (80.0-100.0); MEAN PLATELET VOLUME 9.5 fL (7.4-10.4); MONOCYTES 9.4 % (2-11); NEUTROPHILS 58.9 % (40-80); PLATELET COUNT 116 10x3/uL (130-400); RBC 3.19 10x6/uL (4.20-6.10); RDW 12.3 % (11.5-14.5); WBC 4.9 10x3/uL (4.8-10.8)
[2016-12-25 06:11] LABS: CARBON DIOXIDE 25.8 mmol/L (21.0-32.0); CHLORIDE - SERUM 105 mmol/L (98-107); POTASSIUM - SERUM 3.4 mmol/L (3.5-5.1); SODIUM 141 mmol/L (136-145); eGFR NON AFRICAN AMERICAN 77 mL/min (90-120)
[2016-12-25 06:15] LABS: CALC OSMOLALITY 283 mosm/kg (275-300); GLUCOSE 137 mg/dL (74-106); UREA NITROGEN 16 mg/dL (7-18)
--- NOTE | 2016-12-25 07:47 | NUR ---
ASSESSMENT COMPLETED. SLEEPING BUT AWAKENS TO VOICE. O2 AT 2 L/M PER NC. IV TO RIGHT FA WITH NS AT 75. LEFT ARM FLACID. EDEMA TO LEGS. DRSG TO BUTTOCK DRY AND INTACT. DENIES ANY NEEDS. WILL MONITOR
[2016-12-25 08:00] VITALS: BP 154/91
--- NOTE | 2016-12-25 10:22 | NUR ---
Patient Name: ANGE PAN Encounter No: [id number] : 1940 Primary Insurance: [employer] PPO Anticipated DC Date: 12-22-2016 Planned Disposition: Home with Home Health External Planned Provider: [facility] DCP follow-up note: CM CALLED ENRIQUETA OF [facility], , PROVIDED HOSPITAL UPDATE CM FAXED UPDATE TO [facility], . FOR DISCHARGE HOME WITH HOME HEALTH, FAX DISCHARGE INFORMATION TO [facility], , NOTIFY [facility] NURSE AT [phone]. Air Quality Instrument Specialist: Moshe Sanders
--- NOTE | 2016-12-25 11:37 | NUR ---
SLEEPING BUT NON VERBRAL AT THIS TIME. FAMILY AT BEDSIDE. WILL CONTINUE TO MONITOR
[2016-12-25 13:26] VITALS: BP 164/62
[2016-12-25 16:00] VITALS: BP 144/71
--- NOTE | 2016-12-25 19:00 | NUR ---
INITIAL ROUNDS MADE. PT SITTING UP IN BED RESTING WELL WITH EYES CLOSED, AWAKENED EASILY WHEN NAME CALLED. DENIES NEEDS OR C/O AT THIS TIME. WILL CONT TO MONITOR.
[2016-12-25 20:00] VITALS: BP 164/83
[2016-12-26 01:17] VITALS: BP 160/62
[2016-12-26 06:28] VITALS: BP 181/76
[2016-12-26 08:00] VITALS: BP 159/81
--- NOTE | 2016-12-26 08:34 | NUR ---
IV ACCESS-20 GAUGE INSERTED IN LEFT AC FOR ACCESS. PAU HOOVER RN
--- NOTE | 2016-12-26 09:55 | NUR ---
TELEMETRY SR. IV RESTARTED AT THIS TIME. IV PATENT. LEAHY INTACT. AT BS ASSISTING WITH NEEDS. WILL CONT. PLAN OF CARE.
[2016-12-26 14:06] VITALS: BP 108/45
[2016-12-26 16:00] VITALS: BP 135/67
[2016-12-26 21:40] VITALS: BP 163/72
--- NOTE | 2016-12-27 01:09 | NUR ---
THERAPEUTIC RECREATION SPECIALIST AT BEDSIDE TO OBTAIN VITALS, CALL LIGHT IN REACH. WILL CONTINUE WITH PLAN OF CARE.
[2016-12-27 01:21] VITALS: BP 161/73
[2016-12-27 04:47] VITALS: BP 114/78
[2016-12-27 08:40] VITALS: BP 171/86
[2016-12-27] MEDS ORDERED: ZIAC 10-6.25 MG1 TAB PO (09:43)
[2016-12-27] MEDS ORDERED: CALAN120 MG PO (09:43)
[2016-12-27] MEDS ORDERED: PERPHENAZINE2 MG PO (09:44)
[2016-12-27] MEDS ORDERED: CELEXA20 MG PO (09:44)
--- NOTE | 2016-12-27 10:00 | NUR ---
SPOKE WITH HO AT [facility]. UPDATED THAT PATIENT WAS DISCHARGING HOME TODAY. D/C INFORMATION FAXED TO THEM.
--- NOTE | 2016-12-27 10:30 | NUR ---
IV AND ARMOND CONNERD FOR DC.
--- NOTE | 2016-12-27 11:15 | NUR ---
DC PLANS GIVEN TO AND SON. UNDERSTANDING VOICED. AMBULANCE NOTIFIED FOR TRANSPORTATION.
--- NOTE | 2016-12-27 11:54 | NUR ---
LEAVING WITH EMS BY STRETCHER.
== END 2016-12-27 11:54 | disposition home health service (06) | DRG 638 ==
LOC: D.M2 22:00
PROVIDERS: ADMIT Family Medicine
PROC: 0T9B70Z Drainage of Bladder with Drainage Device, Via Natural or Artificial Opening (ICD-10-PCS; principal; 2016-12-25)
DX: E11.649 Type 2 diabetes mellitus with hypoglycemia without coma (principal); N39.0 Urinary tract infection, site not specified; F01.51 Vascular dementia, unspecified severity, with behavioral disturbance; E87.1 Hypo-osmolality and hyponatremia; E87.6 Hypokalemia; B96.4 Proteus (mirabilis) (morganii) as the cause of diseases classified elsewhere; I69.919 Unspecified symptoms and signs involving cognitive functions following unspecified cerebrovascular disease; E86.0 Dehydration; R26.89 Other abnormalities of gait and mobility; I10 Essential (primary) hypertension; F32.9 Major depressive disorder, single episode, unspecified; K21.9 Gastro-esophageal reflux disease without esophagitis; E78.5 Hyperlipidemia, unspecified